=== PATIENT | female | born 1985 | race Caucasian/White ===

== ENCOUNTER 2016-11-26 10:16 | Emergency (ER) | payer OTHER, MEDICAID ==
[2016-11-26] MEDS ORDERED: NS 1,000 ML IV ONE ×2 (11:21→11:39)
[2016-11-26 11:27] LABS: % IMMATURE GRANULYOCYTES 0.6 % (0.0-1.1); ABSOLUTE IMMATURE GRANULOCYTES 0.07 10^3/uL (0.00-0.10); ADD DIFF? NO; ADD MORPH? NO; ADD SCAN? NO; ATYPICAL LYMPHOCYTE FLAG 0 (0-99); FRAGMENT RBC FLAG 0 (0-99); HEMATOCRIT 46.1 % (38.0-47.0); HEMOGLOBIN 14.9 g/dL (12.6-16.3); LEFT SHIFT FLG 0 (0-99); LIPEMIA HEMOLYSIS FLAG 80 (0-99); MEAN CELL HEMOGLOBIN 29.3 pg (27.9-34.1); MEAN CELL HEMOGLOBIN CONCENTR. 32.3 g/dL (32.4-36.7); MEAN CELL VOLUME 90.7 fL (81.5-99.8); MEAN PLATELET VOLUME 9.4 fL (8.7-11.7); PLATELET CLUMPS FLAG 0 (0-99); PLATELET COUNT 541 10^3/uL (150-400); RED BLOOD CELL COUNT 5.08 10^6/uL (4.18-5.33)
[2016-11-26 11:36] LABS: ALANINE AMINOTRANSFERASE 36 IU/L (9-52); ALBUMIN 5.2 g/dL (3.5-5.0); ALKALINE PHOSPHATASE 78 IU/L (38-126); ANION GAP 20 mEq/L (8-16); ASPARTATE AMINOTRANSFERASE 32 IU/L (14-46); BILIRUBIN,TOTAL 0.8 mg/dL (0.1-1.4); BILIRUBIN-CONJUGATED 0.5 mg/dL (0.0-0.5); BILIRUBIN-UNCONJUGATED 0.3 mg/dL (0.0-1.1); CALCIUM 10.7 mg/dL (8.5-10.4); CARBON DIOXIDE 17 mEq/l (22-31); CHLORIDE 105 mEq/L (97-110); CREATININE 0.7 mg/dL (0.6-1.0); GLOMERULAR FILTRATION RATE > 60; GLUCOSE 96 mg/dL (70-100); POTASSIUM 4.4 mEq/L (3.5-5.2); SODIUM 142 mEq/L (134-144); TOTAL PROTEIN 8.8 g/dL (6.3-8.2)
[2016-11-26 11:36] LABS: COLOR YELLOW; LEUKOCYTE ESTERASE,URINE NEGATIVE (NEGATIVE); NITRITE,URINE NEGATIVE (NEGATIVE)
[2016-11-26] MEDS ORDERED: ONDANSETRON 4 MG/2 ML VIAL IVP ONE (11:39)
[2016-11-26 11:42] LABS: MUCUS TRACE /lpf (NONE-1+)
--- NOTE | 2016-11-26 11:42 | EDPHY ---
H & P Stated Complaint: R lower back pain x several days;thinks she has a kidney stone HPI/ROS: CHIEF COMPLAINT: Flank pain, possible stones HISTORY OF PRESENT ILLNESS: Patient complains of right-sided flank pain. This started abruptly 2 days ago. It has been constant duration. Moderate to severe. Worse with palpation and movement. No position of comfort. Nausea but no vomiting. No fever chills. No dysuria. No gross hematuria. Does have a history of right-sided stones in the past and this pain is very similar. No saddle anesthesia. No radicular pain. No motor sensory changes of the lower extremity. No incontinence of bowel or bladder. No other associated complaints or modifying factors. REVIEW OF SYSTEMS: Ten systems reviewed and are negative unless otherwise noted in the HPI PAST MEDICAL HISTORY: Reviewed, includes previous kidney stones SOCIAL HISTORY: Nonsmoker, lives at home with father FAMILY HISTORY: Noncontributory EXAMINATION General Appearance: Alert, no distress Head: normocephalic, atraumatic Eyes: Pupils equal and round, no conjunctival pallor or injection ENT, Mouth: Mucous membranes moist. Uvula midline. Airway widely patent Neck: Normal inspection, supple, non-tender Respiratory: Lungs are clear to auscultation. No wheezing, rhonchi or crackles Cardiovascular: Regular rate and rhythm. No murmur. Gastrointestinal: Abdomen is soft. Nondistended. No rigidity. Right-sided CVA tenderness. No guarding. Nonacute abdomen. Back: non-tender, no bony abnormalities Neurological: A&O, nonfocal, normal gait. Patellar reflexes symmetric at 2+ strength is symmetric in all 4 limbs. Skin: Warm and dry, no rash Extremities: Nontender, no pedal edema Psychiatric: Mood and affect normal DIFFERENTIAL DIAGNOSES: Including but not limited to renal colic, nephrolithiasis, ureterolithiasis, hydronephrosis, pyelonephritis, UTI, muscular strain MDM: 11:35 a.m. Right flank pain in a patient with history of kidney stones. Pain is similar to her. Vital signs are stable. No SIRS criteria met. I have ordered laboratory studies, CT scan without contrast, pain medication, IV fluid. She is in no acute distress. 12:15 p.m. Notified by radiologist Dr. Koch. CT scan of the abdomen pelvis reveals no stone. Normal CT scan 12:45 p.m. I have re-evaluated the patient. Her pain is significantly better. We discussed the possibility of recently passed stone, musculoskeletal strain or muscle skeletal pain of uncertain etiology. Treat with muscle relaxant for the possibility of musculoskeletal strain. She is to follow up with primary care physician. Return here for any worsening pain, gross hematuria, fever, chills, abdominal pain. She and her father at bedside are comfortable with this plan. He is discharged home in stable condition. SUPERVISION: Source: Patient, Family, Old records Exam Limitations: No limitations - Personal History LMP (Females 10-55): Extended Cycle BCP/Inj Current Tetanus Diphtheria and Acellular Pertussis (TDAP): Yes Tetanus Vaccine Date: unsure by MD has records - Medical/Surgical History Hx Asthma: No Hx Chronic Respiratory Disease: No Hx Diabetes: No Hx Cardiac Disease: No Hx Renal Disease: No Hx Cirrhosis: No Hx Alcoholism: No Hx HIV/AIDS: No Hx Splenectomy or Spleen Trauma: No Other PMH: Bipolar, Sinus Infection, Renal Stones, obesity - Social History Smoking Status: Never smoked Constitutional: Initial Vital Signs Temperature (C) 98.2 F 11/26/16 10:24 Heart Rate 93 11/26/16 10:24 Respiratory Rate 18 11/26/16 10:24 Blood Pressure 150/103 H 11/26/16 10:24 O2 Sat (%) 98 11/26/16 10:24 O2 Delivery Mode Room Air Allergies/Adverse Reactions: No Known Allergies Allergy (Verified 03/20/16 19:43) Home Medications: Medication Instructions Recorded Levothyroxine [Synthroid 100 mcg 100 mcg PO DAILY06 02/21/12 (*)] Zolpidem Tartrate [Ambien 10 mg] 10 mg PO HS 02/21/12 l-Norgest/E.estradiol-E.estrad 1 each PO HS #0 02/21/12 [Camrese 0.15-0.03-0.01 mg Tab] metFORMIN HCL [Glucophage 500 mg 1,000 mg PO BIDMEAL 02/21/12 (*)] Gabapentin [Neurontin 300 MG (*)] 300 mg PO QID PRN 02/19/13 clonazePAM [klonoPIN (*)] 1 mg PO BID PRN 02/19/13 Dextromethorphan HBr/Quinidine 1 each PO BID 03/21/16 [Nuedexta 20-10 mg Capsule] Ketamine Nasal [place] 1 spray EACHNARE Q2D 03/21/16 QUEtiapine FUMARATE [Seroquel 200 200 mg PO HS 03/21/16 mg (*)] Zonisamide [Zonegran 100MG (*)] 100 mg PO BID 03/21/16 traMADol [Ultram 50 mg (*)] 50 mg PO Q4 PRN 03/21/16 Cyclobenzaprine [Flexeril 10 MG 10 mg PO TID PRN #15 tab 11/26/16 (*)] Medical Decision Making - Diagnostics Imaging Results: Imaging Impressions Abdomen/Pelvis CT 11/26/16 11:39 Impression: 1. No evidence of urinary tract calculus. 2. No significant abnormality identified within the abdomen and pelvis. Attention: This CT examination is specifically designed to evaluate patients who are clinically suspected of having acute obstructive uropathy. This examination does not use radiographic contrast, and as such, provides only a limited evaluation of the abdomen, pelvis and retroperitoneum. If there is further clinical suspicion for pathological conditions other than obstructive uropathy, a complete CT evaluation of the abdomen and pelvis utilizing intravenous, oral, and rectal contrast should be considered. Findings discussed with the emergency medical service manager with Kevin Connolly PAC at 12:14 hour, 11/26/2016. - Data Points Laboratory Results: Laboratory Results 11/26/16 10:47 11/26/16 10:47 11/26/16 11/26/16 11/26/16 11:25 10:47 10:47 WBC RBC Hgb Hct MCV MCH MCHC RDW Plt Count MPV Neut % (Auto) Lymph % (Auto) [place] % (Auto) Eos % (Auto) Baso % (Auto) Nucleat RBC Rel Count Absolute Neuts (auto) Absolute Lymphs (auto) Absolute Monos (auto) Absolute Eos (auto) Absolute Basos (auto) Absolute Nucleated RBC Immature Gran % Immature Gran # Sodium 142 mEq/L mEq/L (134-144) Potassium 4.4 mEq/L mEq/L (3.5-5.2) Chloride 105 mEq/L mEq/L (97-110) Carbon Dioxide 17 mEq/l L mEq/l (22-31) Anion Gap 20 mEq/L H mEq/L (8-16) BUN 4 mg/dL L mg/dL (7-23) Creatinine 0.7 mg/dL mg/dL (0.6-1.0) Estimated GFR > 60 Glucose 96 mg/dL mg/dL (70-100) Calcium 10.7 mg/dL H mg/dL (8.5-10.4) Phosphorus 4.1 mg/dL mg/dL (2.5-4.5) Total Bilirubin 0.8 mg/dL mg/dL (0.1-1.4) Conjugated Bilirubin 0.5 mg/dL mg/dL (0.0-0.5) Unconjugated Bilirubin 0.3 mg/dL mg/dL (0.0-1.1) AST 32 IU/L IU/L (14-46) ALT 36 IU/L IU/L (9-52) Alkaline Phosphatase 78 IU/L IU/L (38-126) Total Protein 8.8 g/dL H g/dL (6.3-8.2) Albumin 5.2 g/dL H g/dL (3.5-5.0) Lipase 103.0 IU/L IU/L (23-300) Beta HCG, Qual NEGATIVE Urine Color YELLOW Urine Appearance CLEAR Urine pH 6.0 (5.0-7.5) Ur Specific [place] 1.009 (1.002-1.030) Urine Protein NEGATIVE (NEGATIVE) Urine Ketones 1+ H (NEGATIVE) Urine Blood 1+ H (NEGATIVE) Urine Nitrate NEGATIVE (NEGATIVE) Urine Bilirubin NEGATIVE (NEGATIVE) Urine Urobilinogen NEGATIVE EU EU (0.2-1.0) Ur Leukocyte Esterase NEGATIVE (NEGATIVE) Urine RBC 1-3 /hpf /hpf (0-3) Urine WBC 1-3 /hpf /hpf (0-3) Ur Epithelial Cells TRACE /lpf /lpf (NONE-1+) Hyaline Casts 1-5 /lpf /lpf (0-1) Urine Mucus TRACE /lpf /lpf (NONE-1+) Urine Glucose NEGATIVE (NEGATIVE) 11/26/16 10:47 WBC 11.66 10^3/uL H 10^3/uL (3.80-9.50) RBC 5.08 10^6/uL 10^6/uL (4.18-5.33) Hgb 14.9 g/dL g/dL (12.6-16.3) Hct 46.1 % % (38.0-47.0) MCV 90.7 fL fL (81.5-99.8) MCH 29.3 pg pg (27.9-34.1) MCHC 32.3 g/dL L g/dL (32.4-36.7) RDW 14.0 % % (11.5-15.2) Plt Count 541 10^3/uL H 10^3/uL (150-400) MPV 9.4 fL fL (8.7-11.7) Neut % (Auto) 75.3 % H % (39.3-74.2) Lymph % (Auto) 17.3 % % (15.0-45.0) [place] % (Auto) 6.2 % % (4.5-13.0) Eos % (Auto) 0.3 % L % (0.6-7.6) Baso % (Auto) 0.3 % % (0.3-1.7) Nucleat RBC Rel Count 0.0 % % (0.0-0.2) Absolute Neuts (auto) 8.79 10^3/uL H 10^3/uL (1.70-6.50) Absolute Lymphs (auto) 2.02 10^3/uL 10^3/uL (1.00-3.00) Absolute Monos (auto) 0.72 10^3/uL 10^3/uL (0.30-0.80) Absolute Eos (auto) 0.03 10^3/uL 10^3/uL (0.03-0.40) Absolute Basos (auto) 0.03 10^3/uL 10^3/uL (0.02-0.10) Absolute Nucleated RBC 0.00 10^3/uL 10^3/uL (0-0.01) Immature Gran % 0.6 % % (0.0-1.1) Immature Gran # 0.07 10^3/uL 10^3/uL (0.00-0.10) Sodium Potassium Chloride Carbon Dioxide Anion Gap BUN Creatinine Estimated GFR Glucose Calcium Phosphorus Total Bilirubin Conjugated Bilirubin Unconjugated Bilirubin AST ALT Alkaline Phosphatase Total Protein Albumin Lipase Beta HCG, Qual Urine Color Urine Appearance Urine pH Ur Specific [place] Urine Protein Urine Ketones Urine Blood Urine Nitrate Urine Bilirubin Urine Urobilinogen Ur Leukocyte Esterase Urine RBC Urine WBC Ur Epithelial Cells Hyaline Casts Urine Mucus Urine Glucose Medications Given: Discontinued Medications Sodium Chloride (Ns) 1,000 mls @ 0 mls/hr IV EDNOW ONE; Wide Open PRN Reason: Protocol Stop: 11/26/16 11:22 Last Admin: 11/26/16 11:22 Dose: 1,000 mls Sodium Chloride (Ns) 1,000 mls @ 0 mls/hr IV ONCE ONE; Wide Open PRN Reason: Protocol Stop: 11/26/16 11:40 Last Admin: 11/26/16 11:46 Dose: 1,000 mls Morphine Sulfate (Morphine) 4 mg IVP EDNOW ONE Stop: 11/26/16 11:40 Last Admin: 11/26/16 12:07 Dose: 4 mg Ondansetron HCl (Zofran) 4 mg IVP EDNOW ONE Stop: 11/26/16 11:40 Last Admin: 11/26/16 11:47 Dose: 4 mg Departure - Departure Disposition: Home, Routine, Self-Care Clinical Impression: Muscle strain Acute low back pain Qualifiers: Back pain laterality: right Sciatica presence: without sciatica Qualified Code( s): M54.5 - Low back pain Condition: Good Instructions: Muscle Strain (ED), Lower Back Exercises (ED) Additional Instructions: 1. [id number] anti-inflammatories as discussed. 2. Muscle relaxant as prescribed as needed 3. Follow up primary care physician for further care 4. Return here for any worsening pain, fever, chills, nausea, vomiting Referrals: Whit Beauchamp MD [Primary Care Provider] - As per Instructions Prescriptions: Cyclobenzaprine [Flexeril 10 MG (*)] 10 mg PO TID PRN #15 tab PRN Reason: Spasms
[2016-11-26 12:11] VITALS: RESP 16
[2016-11-26 12:55] VITALS: BP 122/76; PULSE 86; TEMP 98.1; O2SAT 98
== END 2016-11-26 12:55 | disposition home or self-care (01) ==
DX: S39.012A Strain of muscle, fascia and tendon of lower back, initial encounter (principal); E86.9 Volume depletion, unspecified; X58.XXXA Exposure to other specified factors, initial encounter; Y99.8 Other external cause status; Y93.89 Activity, other specified
CPT/HCPCS: 96374; J2405

== ENCOUNTER 2017-02-15 01:33 | Emergency (ER) | payer OTHER, MEDICAID ==
[2017-02-15 01:41] VITALS: BP 149/90; RESP 20; TEMP 98.2; O2SAT 96
== END 2017-02-15 02:22 | disposition left against medical advice (07) ==
DX: Z53.21 Procedure and treatment not carried out due to patient leaving prior to being seen by health care provider (principal)

== ENCOUNTER 2017-07-16 20:01 | Emergency (ER) | payer OTHER, MEDICAID ==
[2017-07-16 20:20] VITALS: TEMP 98.2; O2SAT 96
[2017-07-16] MEDS ORDERED: METOCLOPRAMIDE 10 MG/2 ML VIAL IVP ONE (21:27)
[2017-07-16] MEDS ORDERED: KETOROLAC 30 MG/1 ML SDV IVP ONE (21:27)
[2017-07-16] MEDS ORDERED: NS 1,000 ML IV ONE (21:28)
--- NOTE | 2017-07-16 21:48 | EDPHY ---
H & P Time Seen by Provider: 07/16/17 21:43 HPI/ROS: CHIEF COMPLAINT: Migraine headache HISTORY OF PRESENT ILLNESS: The patient is a 32 y/o female with a history of bipolar disorder and migraines complaining of a migraine headache. Her migraine GUILLAUME has been off and on for a few days, with today being the worst. She reports sensitivity to light and noise and nausea. The pain is moderate to severe and primarily in the frontal region. She has taken ibuprofen and Ambien, with some relief. She denies any other associated symptoms. Similar to prior migraines. She uses marijuana regularly. REVIEW OF SYSTEMS: A 10 point review of systems was performed and is negative with the exception of the elements mentioned in the history of present illness. Past Medical/Surgical History: Bipolar disorder, migraines, autism, dyslexia Social History: no recent alcohol Smoking Status: Never smoked Physical Exam: General Appearance: Alert, does not appear in pain Eyes: Pupils equal and round, no conjunctival pallor or injection ENT, Mouth: Mucous membranes moist Neck: Normal inspection Respiratory: Lungs are clear to auscultation Cardiovascular: Regular rate and rhythm Gastrointestinal: Abdomen is soft and non-tender Neurological: A&O, CN II-XII intact, motor/sensory intact Skin: Warm and dry, no rash Extremities: Nontender, no pedal edema Psychiatric: Mood and affect normal Constitutional: Initial Vital Signs Temperature (C) 36.8 C 07/16/17 20:17 Heart Rate 87 07/16/17 20:17 Respiratory Rate 20 07/16/17 20:17 Blood Pressure 134/95 H 07/16/17 20:17 O2 Sat (%) 96 07/16/17 20:17 O2 Delivery Mode Room Air Allergies/Adverse Reactions: No Known Allergies Allergy (Verified 07/19/17 07:01) Home Medications: Medication Instructions Recorded Levothyroxine [Synthroid 100 mcg 100 mcg PO DAILY06 02/21/12 (*)] Zolpidem Tartrate [Ambien 10 mg] 10 mg PO HS 02/21/12 l-Norgest/E.estradiol-E.estrad 1 each PO HS #0 02/21/12 [[place]rese 0.15-0.03-0.01 mg Tab] metFORMIN HCL [Glucophage 500 mg 1,000 mg PO BIDMEAL 02/21/12 (*)] Gabapentin [Neurontin 300 MG (*)] 300 mg PO QID PRN 02/19/13 clonazePAM [klonoPIN (*)] 1 mg PO BID PRN 02/19/13 QUEtiapine FUMARATE [Seroquel 200 200 mg PO HS 03/21/16 mg (*)] traMADol [Ultram 50 mg (*)] 50 mg PO Q4 PRN 03/21/16 Metoclopramide [Reglan 5 mg (*)] 5 mg PO TID #11 tab 07/19/17 Medical Decision Making ED Course/Re-evaluation: The patient presents with atypical migraine headache. Neurologic exam is normal and I do not suspect an alternative etiology for GUILLAUME. Reglan 10 mg IV, Benadryl 25 mg IV, Decadron 8 mg IV and Toradol 15 mg IV given. Patient feels much better after these medications and wants to go home. Warning signs discussed. Safe and stable for discharge home. Differential Diagnosis: Headache including but not limited to subarachnoid hemorrhage, migraine headache , tension headache and infectious causes such as meningitis, pharyngitis and sinusitis. - Data Points Laboratory Results: Laboratory Results 07/16/17 21:24 07/16/17 21:24 Medications Given: Discontinued Medications Diphenhydramine HCl (Benadryl Injection) 50 mg IVP EDNOW ONE Stop: 07/16/17 21:29 Last Admin: 07/16/17 21:41 Dose: 50 mg Sodium Chloride (Ns) 1,000 mls @ 0 mls/hr IV ONCE ONE PRN Reason: Wide Open Stop: 07/16/17 21:29 Last Admin: 07/16/17 21:40 Dose: 1,000 mls Ketorolac Tromethamine (Toradol) 30 mg IVP EDNOW ONE Stop: 07/16/17 21:28 Last Admin: 07/16/17 21:41 Dose: 30 mg Metoclopramide HCl (Reglan Injection) 10 mg IVP EDNOW ONE Stop: 07/16/17 21:28 Last Admin: 07/16/17 21:41 Dose: 10 mg Departure - Departure Disposition: Home, Routine, Self-Care Clinical Impression: Migraine Qualifiers: Migraine type: without aura Status migrainosus presence: without status migrainosus Intractability: not intractable Qualified Code(s): G43.009 - Migraine without aura, not intractable, without status migrainosus Condition: Good Instructions: Migraine Headache (ED) Referrals: Whit Beauchamp MD [Primary Care Provider] - Follow Up Only If Needed
[2017-07-16] MEDS ORDERED: DEXAMETHASONE 4 MG/ML VIAL IVP ONE (22:27)
[2017-07-16 22:37] VITALS: BP 120/79; PULSE 69; RESP 18
== END 2017-07-16 22:59 | disposition home or self-care (01) ==
DX: G43.009 Migraine without aura, not intractable, without status migrainosus (principal)
CPT/HCPCS: 96374; J1100; J1200; J1885; J2765

== ENCOUNTER 2017-07-19 06:48 | Emergency (ER) | payer OTHER, MEDICAID ==
[2017-07-19 07:01] VITALS: PULSE 86; RESP 18; TEMP 98.6; O2SAT 94
--- NOTE | 2017-07-19 07:55 | EDPHY ---
H & P Time Seen by Provider: 07/19/17 07:41 HPI/ROS: CHIEF COMPLAINT: "Migraine headache" HISTORY OF PRESENT ILLNESS: The patient is a 32-year-old female with a history of bipolar disorder and migraines who presents to the emergency department with migraine headache. She was seen in the emergency department on 07/16/2017. She states she improved when she was in the ER but the next day her headache returned. She reports that she gets a migraine once or twice a year and it may last for up to a month at a time. She normally controls at home but this is not resolving with her medications of Tylenol, aspirin and Benadryl. Patient states her headache is frontal and on her crown. This is typical of her previous migraines. She has had photophobia and sensitivity to noise. She denies visual change, focal weakness or numbness. She has no neck pain. She has had nausea. REVIEW OF SYSTEMS: My complete review of systems is negative except as mentioned in the HPI. Past Medical/Surgical History: Includes bipolar disorder, migraines, autism, dyslexia, kidney stone Past surgical history: Negative The social history: The patient smokes THC. She does not use cigarettes. Smoking Status: Never smoked Physical Exam: 30 route he 7, 147/84, 86, 18, 94% on room air GENERAL: Mild acute distress, alert. HEENT: Eyes normal to inspection, normal pharynx, no signs of dehydration. NECK: No thyromegaly, no lymphadenopathy, supple. RESPIRATORY: Clear to auscultation bilaterally, no rales, rhonchi or wheezing. CVS: Regular rate and rhythm, no rubs, murmurs, or gallops. ABDOMEN: Soft, nontender, nondistended, no organomegaly. BACK: Normal to inspection, no CVA tenderness. SKIN: Normal color, no rash, warm, dry. No pallor. EXTREMITIES: No pedal edema, no calf tenderness, no Homans sign or cords, no joint swelling. NEURO/PSYCH: Higher functions: Alert and Oriented x3. Normal speech and cognition. Normal mood and affect. Cranial nerves: Normal as tested. Cerebellar: Normal as tested. Good finger to nose, good [id number], normal gait. Peripheral exam: Normal motor exam. Normal sensation. Normal reflexes. Constitutional: Initial Vital Signs Temperature (C) 37 C 07/19/17 06:58 Heart Rate 86 07/19/17 06:58 Respiratory Rate 18 07/19/17 06:58 Blood Pressure 147/84 H 07/19/17 06:58 O2 Sat (%) 94 07/19/17 06:58 O2 Delivery Mode Room Air Allergies/Adverse Reactions: No Known Allergies Allergy (Verified 07/19/17 07:01) Home Medications: Medication Instructions Recorded Levothyroxine [Synthroid 100 mcg 100 mcg PO DAILY06 02/21/12 (*)] Zolpidem Tartrate [Ambien 10 mg] 10 mg PO HS 02/21/12 l-Norgest/E.estradiol-E.estrad 1 each PO HS #0 02/21/12 [[place] 0.15-0.03-0.01 mg Tab] metFORMIN HCL [Glucophage 500 mg 1,000 mg PO BIDMEAL 02/21/12 (*)] Gabapentin [Neurontin 300 MG (*)] 300 mg PO QID PRN 02/19/13 clonazePAM [klonoPIN (*)] 1 mg PO BID PRN 02/19/13 QUEtiapine FUMARATE [Seroquel 200 200 mg PO HS 03/21/16 mg (*)] traMADol [Ultram 50 mg (*)] 50 mg PO Q4 PRN 03/21/16 Metoclopramide [Reglan 5 mg (*)] 5 mg PO TID #11 tab 07/19/17 Medical Decision Making ED Course/Re-evaluation: In the emergency department I discussed treatment options with the patient. I reviewed the previous medical record. She states the medicines given turn the emergency department did help her symptoms. I offered her the same treatment with the addition of steroid. She agreed with the plan. She is given warnings prior to treatment. I rechecked the patient while here. She did well during her stay. On repeat examination she had no focal neurologic deficits. 935: I rechecked the patient. Her symptoms had resolved per report. She was ambulating in the room. She had no focal neurologic deficits on exam. She felt comfortable with discharge. She will be given a prescription of Reglan. She will take this with Benadryl and ibuprofen at home for return of her symptoms. She is given warnings prior to leaving. She will return with worsening symptoms. Differential Diagnosis: My differential includes but is not limited to migraine headache, subarachnoid hemorrhage, subdural hematoma, CVA, dissection, aneurysm, electrolyte abnormality, sugar abnormality - Data Points Medications Given: Discontinued Medications Diphenhydramine HCl (Benadryl Injection) 25 mg IVP EDNOW ONE Stop: 07/19/17 08:42 Last Admin: 07/19/17 08:47 Dose: 25 mg Ketorolac Tromethamine (Toradol) 30 mg IVP EDNOW ONE Stop: 07/19/17 08:41 Last Admin: 07/19/17 08:46 Dose: 30 mg Methylprednisolone Sodium Succinate (Solu-Medrol) 125 mg IVP EDNOW ONE Stop: 07/19/17 08:41 Last Admin: 07/19/17 08:49 Dose: 125 mg Metoclopramide HCl (Reglan Injection) 10 mg IVP EDNOW ONE Stop: 07/19/17 08:41 Last Admin: 07/19/17 08:49 Dose: 10 mg Departure - Departure Disposition: Home, Routine, Self-Care Clinical Impression: Headache Qualifiers: Headache type: other headache syndrome Qualified Code(s): G44.89 - Other headache syndrome Migraine Qualifiers: Migraine type: unspecified Status migrainosus presence: without status migrainosus Intractability: not intractable Qualified Code(s): G43.909 - Migraine, unspecified, not intractable, without status migrainosus Condition: Good Instructions: Migraine Headache (ED), Acute Headache (ED) Additional Instructions: Return with increasing headache, weakness, numbness, vomiting or any other concerns. Referrals: Whit Beauchamp MD [Primary Care Provider] - 3-4 days, if not improved Prescriptions: Metoclopramide [Reglan 5 mg (*)] 5 mg PO TID #11 tab
[2017-07-19] MEDS ORDERED: METOCLOPRAMIDE 10 MG/2 ML VIAL IVP ONE (08:40)
[2017-07-19] MEDS ORDERED: methylPREDNISolone SOD SUCC 125 MG/2 ML VIAL IVP ONE (08:40)
[2017-07-19] MEDS ORDERED: KETOROLAC 30 MG/1 ML SDV IVP ONE (08:40)
[2017-07-19 09:49] VITALS: BP 132/70
== END 2017-07-19 09:48 | disposition home or self-care (01) ==
DX: G43.909 Migraine, unspecified, not intractable, without status migrainosus (principal)
CPT/HCPCS: 96374; J1200; J1885; J2765; J2930

== ENCOUNTER 2017-08-25 18:25 | Emergency (ER) | payer OTHER, MEDICAID ==
[2017-08-25] MEDS ORDERED: DEXAMETHASONE 10 MG/ML VIAL IVP ONE (18:50)
[2017-08-25] MEDS ORDERED: ONDANSETRON 4 MG/2 ML VIAL IVP ONE (18:50)
[2017-08-25] MEDS ORDERED: METOCLOPRAMIDE 10 MG/2 ML VIAL IVP ONE (18:50)
--- NOTE | 2017-08-25 18:50 | EDPHY ---
General - History Smoking Status: Never smoked Time Seen by Provider: 08/25/17 18:36 Narrative: CHIEF COMPLAINT: Headache, migraine HISTORY OF PRESENT ILLNESS: Patient complains of migraine. This has been present for the past 4 hr. Gradual onset. Constant duration. No thunderclap type headache. It is described as typical for her migraine but more severe at this duration. No neck pain or stiffness. No fever. No trauma or injury. She has known history of migraines but does not take any prophylactic medications. She took over-the- counter medications that did not help her today. No known pseudotumor, subarachnoid hemorrhage, bleeding disorders. No seizure disorder. No other associated complaints or modifying factors. REVIEW OF SYSTEMS: Ten systems reviewed and are negative unless otherwise noted in the HPI PCP: Dr. Whit Beauchamp SPECIALISTS: None PAST MEDICAL HISTORY: Migraine headaches, obesity, bipolar disorder, sinusitis, nephrolithiasis, restless leg syndrome PAST SURGICAL HISTORY: Lithotripsy SOCIAL HISTORY: Nonsmoker. No drug or alcohol use. Currently on disability FAMILY HISTORY: Noncontributory EXAMINATION General Appearance: Alert, no distress. wearing an eye mask Head: normocephalic, atraumatic Eyes: Pupils equal and round, no conjunctival pallor or injection. EOM symmetric. No nystagmus. ENT, Mouth: Mucous membranes moist Neck: Normal inspection, supple, non-tender. No meningeal signs. Respiratory: Lungs are clear to auscultation Cardiovascular: Regular rate and rhythm. No murmur Gastrointestinal: Obese Abdomen is soft and nontender. No distention. No tympany. Neurological: GCS 15. A&O, nonfocal, strength is symmetric in all 4 limbs. No pronator drift. Normal [id number]. Skin: Warm and dry, no rash no petechiae or purpura Extremities: Nontender, no pedal edema Psychiatric: Mood and affect normal DIFFERENTIAL DIAGNOSES: Including but not limited to migraine, cluster headache, subarachnoid hemorrhage , meningitis, subdural hematoma MDM: 6:50 p.m. Headache that patient described as typical for her migraines. She has no meningeal signs. Her vital signs are within normal limits and she is in no acute distress. Do not feel subarachnoid hemorrhage or systemic illness. She is requesting medications that we typically administered for headache and she is not requesting any narcotics, nor does she want to take any. I have ordered these medications and I will re-evaluate. She is in no acute distress. 8:05 p.m. Patient re-evaluated. She is sitting on the edge of the bed smiling. She has removed her eye cover and feels significantly better. She has no headache and wants to be discharged home. We discussed further prophylaxis and follow up with primary care physician. We discussed were set and I will provide a short course of this. She is comfortable with this and discharged home stable condition. SUPERVISION: Patient was independently examined, but I discussed the case with my secondary supervising physician Dr. Muhammad ([facility]) The patient was evaluated and managed by the physician promotions assistant sales marketing. I have reviewed this chart and I agree with the findings and plan of care as documented , as indicated by my signature. I am the secondary supervising physician. ( Summer Muhammad) - Objective Vital Signs: Initial Vital Signs Temperature (C) 36.5 C 08/25/17 18:31 Heart Rate 94 08/25/17 18:31 Respiratory Rate 18 08/25/17 18:31 Blood Pressure 129/88 H 08/25/17 18:31 O2 Sat (%) 96 08/25/17 18:31 O2 Delivery Mode Room Air Allergies/Adverse Reactions: No Known Allergies Allergy (Verified 08/25/17 18:28) Home Medications: Medication Instructions Recorded Levothyroxine [Synthroid 100 mcg 100 mcg PO DAILY06 02/21/12 (*)] Zolpidem Tartrate [Ambien 10 mg] 10 mg PO HS 02/21/12 l-Norgest/E.estradiol-E.estrad 1 each PO HS #0 02/21/12 [Camrese 0.15-0.03-0.01 mg Tab] metFORMIN HCL [Glucophage 500 mg 1,000 mg PO BIDMEAL 02/21/12 (*)] Gabapentin [Neurontin 300 MG (*)] 300 mg PO QID PRN 02/19/13 QUEtiapine FUMARATE [Seroquel 200 200 mg PO HS 03/21/16 mg (*)] Codeine/Butalbital/ASA/Caffein 1 - 2 each PO Q4 PRN #12 capsule 08/25/17 [Fiorinal with Codeine #3 Cap] DIAZEPAM 08/25/17 Depakote 08/25/17 Gabapentin 08/25/17 Topamax 08/25/17 Vraylar 08/25/17 Laboratory Results: Laboratory Results 08/25/17 18:49 Medications Given: Discontinued Medications Dexamethasone (Decadron Injection) 10 mg IVP EDNOW ONE Stop: 08/25/17 18:51 Last Admin: 08/25/17 18:56 Dose: 10 mg Diphenhydramine HCl (Benadryl Injection) 50 mg IVP EDNOW ONE Stop: 08/25/17 18:51 Last Admin: 08/25/17 18:56 Dose: 50 mg Sodium Chloride (Ns) 1,000 mls @ 0 mls/hr IV EDNOW ONE; Wide Open PRN Reason: Protocol Stop: 08/25/17 19:01 Last Admin: 08/25/17 19:02 Dose: 1,000 mls Ketorolac Tromethamine (Toradol) 30 mg IVP EDNOW ONE Stop: 08/25/17 19:15 Last Admin: 08/25/17 20:15 Dose: 30 mg Metoclopramide HCl (Reglan Injection) 10 mg IVP EDNOW ONE Stop: 08/25/17 18:51 Last Admin: 08/25/17 18:56 Dose: 10 mg Ondansetron HCl (Zofran) 4 mg IVP EDNOW ONE Stop: 08/25/17 18:51 Last Admin: 08/25/17 18:56 Dose: 4 mg Departure - Departure Disposition: Home, Routine, Self-Care Clinical Impression: Migraine Qualifiers: Migraine type: unspecified Status migrainosus presence: without status migrainosus Intractability: not intractable Qualified Code(s): G43.909 - Migraine, unspecified, not intractable, without status migrainosus Condition: Good Instructions: Migraine Headache (ED), Acute Headache (ED) Additional Instructions: 1. Contact primary care physician tomorrow 2. Fioricet as prescribed as needed 3. ED precautions as discussed Referrals: Whit Beauchamp MD [Primary Care Provider] - As per Instructions Prescriptions: Codeine/Butalbital/ASA/Caffein [Fiorinal with Codeine #3 Cap] 1 - 2 each PO Q4 PRN #12 capsule PRN Reason: Headache
[2017-08-25] MEDS ORDERED: NS 1,000 ML IV ONE (19:00)
[2017-08-25] MEDS ORDERED: KETOROLAC 30 MG/1 ML SDV IVP ONE (19:14)
[2017-08-25 20:22] VITALS: BP 141/98
== END 2017-08-25 20:27 | disposition home or self-care (01) ==
DX: G43.909 Migraine, unspecified, not intractable, without status migrainosus (principal); E86.9 Volume depletion, unspecified
CPT/HCPCS: 96374; J1100; J1200; J1885; J2405; J2765